=== PATIENT | male | born 1975 ===

== ENCOUNTER 2025-01-15 03:06 | Inpatient (IN) | payer MEDICARE ==
[~2025-01-15] VITALS: Ht 167.6 cm; Wt 97.2 kg
[2025-01-15] MEDS ORDERED: Ondansetron HCl 2 MG / ML 2ML Vial IV ONE (03:45)
[2025-01-15 03:55] LABS: BASOPHILS ABSOLUTE AUTO 0.07 K/mm3 (0.00-0.23); BASOPHILS PERCENT AUTO 1 % (0-2); EOSINOPHILS ABSOLUTE AUTO 0.05 K/mm3 (0.00-0.68); EOSINOPHILS PERCENT AUTO 0 % (0-6); Hematocrit 54.6 % (37.0-53.0); Hemoglobin 18.3 g/dL (13.5-17.5); IMMATURE GRAN ABSOLUTE AUTO 0.06 K/mm3 (0.00-0.10); IMMATURE GRAN PERCENT AUTO 0 % (0-1); LYMPHOCYTES PERCENT AUTO 8 % (21-46); MONOCYTES ABSOLUTE AUTO 0.66 K/mm3 (0.16-1.47); MONOCYTES PERCENT AUTO 5 % (4-13); Mean Corpuscular HGB 29.2 pg (26.0-34.0); Mean Corpuscular HGB Conc 33.5 g/dL (31.5-36.5); Mean Corpuscular Volume 87 fL (80-100); NEUTROPHILS ABSOLUTE AUTO 12.51 K/mm3 (1.96-9.15); NEUTROPHILS PERCENT AUTO 87 % (41-73); Platelet Count 218 K/mm3 (150-400); RDW Coefficient Variation 13.8 % (11.7-14.2); RDW Standard Deviation 43.7 fL (35.1-46.3); Red Blood Cell Count 6.27 M/mm3 (4.30-5.90); White Blood Cell Count 14.45 K/mm3 (4.00-11.30)
[2025-01-15 04:18] LABS: Albumin, Blood 3.6 g/dL (3.4-5.0); Albumin/Globulin Ratio 0.9 (0.8-1.8); Bilirubin, Total 0.5 mg/dL (0.1-1.0); Bun/Creatinine Ratio 20.1 (12.0-20.0); Calcium, Blood 9.3 mg/dL (8.5-10.1); Creatinine, Blood 0.65 mg/dL (0.60-1.20); Globulin, Blood 3.9 g/dL (2.2-4.0); Potassium, Blood 3.7 mmol/L (3.5-5.5); Total Protein, Blood 7.5 g/dL (6.4-8.2)
[2025-01-15] MEDS ORDERED: NS 1,000 ML IV SCH ×4 (05:20→11:45)
[2025-01-15] MEDS ORDERED: Pantoprazole Sodium 40 MG Injection IV ONE (05:50)
[2025-01-15] MEDS ORDERED: Haloperidol Lactate Inj. 5 MG/ML Injection IV ONE (05:50)
[2025-01-15 06:37] LABS: Hematocrit 51.8 % (37.0-53.0); Hemoglobin 17.2 g/dL (13.5-17.5)
[2025-01-15 07:07] LABS: Base Excess Venous 3.2 mmol/L; Bicarbonate Venous 26.2 mmol/L (24.0-30.0); PCO2 Venous 47.6 mmHg (38-42); pH Blood Venous 7.38 (7.34-7.37)
[2025-01-15] MEDS ORDERED: CefTRIAXone Sodium 1,000 MG in NS 100 ML IV ONE ×2 (10:20→12:00)
[2025-01-15] MEDS ORDERED: Doxycycline Hyclate 100 MG in Dextrose 5% 250 ML IV ONE (10:20)
[2025-01-15] MEDS ORDERED: Insulin Regular 100 Unit/ML 1ML Dose IV ONE (11:00)
[2025-01-15] MEDS ORDERED: FLU VACC TS2024-25(6MOS UP)/PF 45 MCG/0.5 ML SYRINGE IM SCH (11:50)
[2025-01-15] MEDS ORDERED: Pantoprazole Sodium 40 MG Injection IV SCH (12:00)
[2025-01-15 12:28] LABS: U Amphetamine Screen Not Detected; U Barbituate Screen Not Detected; U Benzodiazapine Screen Not Detected; U Buprenorphine Screen Not Detected; U Cannabinoids Screen DETECTED; U Cocaine Screen Not Detected; U Methadone Screen Not Detected; U Methamphetamine Screen Not Detected; U Opiates Screen Not Detected; U Oxycodone Screen Not Detected; U Phencyclidine Screen Not Detected
[2025-01-15] MEDS ORDERED: Insulin Human Lispro 100 Units/ML 3ML Syringe SC SCH (16:30)
[2025-01-15 16:51] LABS: Glucose, Blood 332 mg/dL (70-99)
--- NOTE | 2025-01-15 18:55 | NUR ---
PT ARRIVED FROM ER. ON 2L NC.
[2025-01-15 19:00] VITALS: BP 141/94
[2025-01-15] MEDS ORDERED: Nicotine 21 MG PATCH TOP SCH (21:00)
[2025-01-15] MEDS ORDERED: Insulin Glargine-Yfgn 100 Unit/mL 3 ML SYR SC SCH (21:00)
[2025-01-16] MEDS ORDERED: Doxycycline Hyclate 100 MG in Dextrose 5% 250 ML IV SCH
[2025-01-16] MEDS ORDERED: Acetaminophen 325 MG TABLET PO PRN (02:25)
[2025-01-16] MEDS ORDERED: OxyCODONE HCL 5 MG TAB PO PRN (02:25)
[2025-01-16 03:01] VITALS: BP 143/86
[2025-01-16 04:54] LABS: BASOPHILS ABSOLUTE AUTO 0.06 K/mm3 (0.00-0.23); BASOPHILS PERCENT AUTO 1 % (0-2); EOSINOPHILS ABSOLUTE AUTO 0.15 K/mm3 (0.00-0.68); EOSINOPHILS PERCENT AUTO 1 % (0-6); Hematocrit 46.1 % (37.0-53.0); Hemoglobin 15.2 g/dL (13.5-17.5); IMMATURE GRAN ABSOLUTE AUTO 0.03 K/mm3 (0.00-0.10); IMMATURE GRAN PERCENT AUTO 0 % (0-1); LYMPHOCYTES ABSOLUTE AUTO 2.12 K/mm3 (0.84-5.20); LYMPHOCYTES PERCENT AUTO 18 % (21-46); MONOCYTES ABSOLUTE AUTO 0.89 K/mm3 (0.16-1.47); MONOCYTES PERCENT AUTO 8 % (4-13); Mean Corpuscular HGB 29.4 pg (26.0-34.0); Mean Corpuscular Volume 89 fL (80-100); NEUTROPHILS ABSOLUTE AUTO 8.44 K/mm3 (1.96-9.15); NEUTROPHILS PERCENT AUTO 72 % (41-73); Platelet Count 171 K/mm3 (150-400); RDW Coefficient Variation 13.7 % (11.7-14.2); RDW Standard Deviation 44.9 fL (35.1-46.3); Red Blood Cell Count 5.17 M/mm3 (4.30-5.90); White Blood Cell Count 11.69 K/mm3 (4.00-11.30)
[2025-01-16 05:30] LABS: Albumin, Blood 2.7 g/dL (3.4-5.0); Albumin/Globulin Ratio 0.9 (0.8-1.8); Bilirubin, Total 0.6 mg/dL (0.1-1.0); Bun/Creatinine Ratio 15.6 (12.0-20.0); Calcium, Blood 7.4 mg/dL (8.5-10.1); Creatinine, Blood 0.58 mg/dL (0.60-1.20); Free Thyroxine 1.07 ng/dL (0.70-1.60); Globulin, Blood 3.1 g/dL (2.2-4.0); Magnesium, Blood 1.4 mg/dL (1.6-2.4); Potassium, Blood 3.4 mmol/L (3.5-5.5); Thyroid Stimulating Hormone 1.3 uIU/mL (0.360-4.800); Total Protein, Blood 5.8 g/dL (6.4-8.2)
--- NOTE | 2025-01-16 06:17 | NUR ---
NEW ADMIT/MAINTENANCE MECHANIC TELEPHONE SUMMARY NEW ADMIT FOR DX SEPSIS WITH DEVELOPING LLL PNA. PT IS A/OX3-4; CAN ANSWER SIMPLE ORIENTATION QUESTIONS; NOTED SOME FORGETFULNESS AND POOR HISTORIAN OF MEDICAL/RECENT PERSONAL HX. PT IS PLEASANT/COOPERATIVE. ORIENTED PT TO ROOM AND CALL LIGHT. EDUCATION ON IGNITION SOURCES. PT IS A CURRENT SMOKER; PT HAS 5 LIGHTERS ON HIS PERSON WHICH WERE LOCKED IN THE PT ROOM DRAWER. THE PT STATED HE IS FROM [place] AND HE MOVED OUT TO [place] 7 DAYS AGO. PT STATES HE FLEW HERE. 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 PT SAYS HE TAKES INSULIN AND BLOOD PRESSURE MEDS BUT COULDN'T RECALL NAMES/DOSAGES. PT USED A [facility] IN [place]. PT DOES NOT HAVE ANY MEDS WITH HIM. HE IS CURRENLTY LIVING WITH FRIENDS AND DENIES SAFETY CONCERNS. PT IS RA AT BASELINE BUT REQUIRING 2LPM TO MAINTAIN SATS. PT IS A 1PA; PT WOBBLY ON FEET AND OVERESTIMATES ABILITY. PT REPORTS FALLING THIS PAST WEEK AND HURTING HIS RIGHT SHOULDER. VSS. PT RCVD IV ABOX PER DEC. TOLERATED WELL. CALL LIGHT ACCESSIBLE. PT CALLING APPROPRIATELY. CARE WILL CONTINUE UNTIL REPORT GIVEN TO ONCOMING NURSE.
[2025-01-16 07:23] VITALS: BP 122/85
[2025-01-16] MEDS ORDERED: Potassium Chloride 20 MEQ TabCR PO ONE (09:00)
[2025-01-16] MEDS ORDERED: CefTRIAXone Sodium 2,000 MG in NS 100 ML IV SCH (09:00)
[2025-01-16] MEDS ORDERED: Enoxaparin 40 MG/0.4 ML SYR SC SCH (09:00)
[2025-01-16] MEDS ORDERED: Magnesium Sulf 2 GM/Water 50ML 50 ML IV ONE (09:25)
[2025-01-16] MEDS ORDERED: BUSP5 PO (11:06)
[2025-01-16] MEDS ORDERED: INSULANI SC (11:07)
[2025-01-16] MEDS ORDERED: GLIP10 PO (11:07)
[2025-01-16] MEDS ORDERED: LISI10 PO (11:07)
--- NOTE | 2025-01-16 16:45 | NUR ---
NO ACUTE CHANGES THIS SHIFT. PT REPORTS FEELING BETTER OVER ALL. PT IS R/A, TELE AND PULSE OX D/C TODAY. PT DENIES SOB/DENIES CHEST PAIN. INDEPENDENT IN THE ROOM. CALLS APPROPRIATELY. IV ANTIBIOTICS CONTNINUED.
[2025-01-16 16:54] VITALS: BP 153/106
[2025-01-16 19:17] VITALS: BP 153/96
[2025-01-17 02:32] VITALS: BP 152/99
--- NOTE | 2025-01-17 04:06 | NUR ---
PT A&O X4. MAKES NEEDS KNONW. NO ACUTE EVENTS THIS SHFIT. INDEPENDENT IN ROOM. NO ADVERSE SIDE EFFECTS TO IV ABX. BED IN LOWEST POSITION. CALL LIGHT IN REACH. CARES CONTINUE ORDERED.
[2025-01-17 04:23] LABS: Base Excess Venous 2.5 mmol/L; Bicarbonate Venous 27.1 mmol/L (24.0-30.0); PCO2 Venous 33.6 mmHg (38-42); pH Blood Venous 7.49 (7.34-7.37)
[2025-01-17 05:31] LABS: BASOPHILS ABSOLUTE AUTO 0.07 K/mm3 (0.00-0.23); BASOPHILS PERCENT AUTO 1 % (0-2); EOSINOPHILS ABSOLUTE AUTO 0.15 K/mm3 (0.00-0.68); EOSINOPHILS PERCENT AUTO 2 % (0-6); Hematocrit 49.3 % (37.0-53.0); Hemoglobin 16.5 g/dL (13.5-17.5); IMMATURE GRAN ABSOLUTE AUTO 0.04 K/mm3 (0.00-0.10); IMMATURE GRAN PERCENT AUTO 0 % (0-1); LYMPHOCYTES ABSOLUTE AUTO 2.34 K/mm3 (0.84-5.20); LYMPHOCYTES PERCENT AUTO 25 % (21-46); MONOCYTES ABSOLUTE AUTO 0.82 K/mm3 (0.16-1.47); MONOCYTES PERCENT AUTO 9 % (4-13); Mean Corpuscular HGB 29.2 pg (26.0-34.0); Mean Corpuscular HGB Conc 33.5 g/dL (31.5-36.5); Mean Corpuscular Volume 87 fL (80-100); Mean Platelet Volume 11.5 fL (9.1-12.4); NEUTROPHILS ABSOLUTE AUTO 5.93 K/mm3 (1.96-9.15); NEUTROPHILS PERCENT AUTO 64 % (41-73); Platelet Count 185 K/mm3 (150-400); RDW Coefficient Variation 13.3 % (11.7-14.2); RDW Standard Deviation 42.5 fL (35.1-46.3); Red Blood Cell Count 5.65 M/mm3 (4.30-5.90); White Blood Cell Count 9.35 K/mm3 (4.00-11.30)
[2025-01-17 05:50] LABS: Bun/Creatinine Ratio 11.3 (12.0-20.0); Calcium, Blood 8.4 mg/dL (8.5-10.1); Creatinine, Blood 0.62 mg/dL (0.60-1.20); Potassium, Blood 3.4 mmol/L (3.5-5.5)
[2025-01-17 07:35] VITALS: BP 161/102
[2025-01-17] MEDS ORDERED: Potassium Chloride 20 MEQ TabCR PO ONE (10:00)
[2025-01-17 16:18] VITALS: BP 152/96
--- NOTE | 2025-01-17 17:40 | NUR ---
NO ACUTE CHANGES, PT FEELING BETTER TODAY. IV ANTIBIOTICS CONTINUED, LIKELY TO DISCHARGE TOMORROW. CBG TREATED PER EMAR. INDEPENDENT IN THE ROOM, R/A
[2025-01-17 19:37] VITALS: BP 145/90
[2025-01-17] MEDS ORDERED: Insulin Glargine-Yfgn 100 Unit/mL 3 ML SYR SC SCH (21:00)
[2025-01-18 02:41] VITALS: BP 153/96
--- NOTE | 2025-01-18 03:11 | NUR ---
AGRICULTURAL LENDER SUMMARY: PT A&O X4. INDEPENDENT IN ROOM. NO ADVERSE SIDE EFFECTS TO IV ABX. ANTICIPATED D/C TODAY. CBG ELEVATED AND TREATED PER EMAR ORDERS. NO ACUTE CHANGES T/O SHIFT. CARES ONGOING ORDERED.
[2025-01-18 07:10] VITALS: BP 163/101
--- NOTE | 2025-01-18 07:27 | NUR ---
ASSUMED CARE OF PATIENT. AWAKE DURING SHIFT-CHANGE REPORT. LYING IN BED. NO ACUTE DISTRESS. ALL ACUTE NEEDS MET. BED IN LOWEST POSITION. CALL LIGHT WITHIN REACH.
[2025-01-18] MEDS ORDERED: NICO21TP TOP (10:47)
[2025-01-18] MEDS ORDERED: INSULIN LI100 UNIT/6 SC (10:50)
[2025-01-18] MEDS ORDERED: DOXY100 PO (10:53)
--- NOTE | 2025-01-18 12:56 | NUR ---
DISCHARGE SUMMARY: A&Ox4. PLEASANT AND COOPERATIVE WITH CARE. CALLS APPROPRIATELY AND IS ABLE TO ADVOCATE NEEDS EFFECTIVELY. AMBULATES INDEPENDETLY. CONTINENT OF BOWEL AND BLADDER. BM TODAY. MEDS WHOLE c FLUIDS. NO TELE. MEDICATED PRN PAIN. MEDICATIONS FAXED TO [facility]. INSTRUCTED TO FOLLOW-UP WITH PROVIDERS ORDERED. LEFT FLOOR AT WITH ALL BELONGINGS AND DISCHARGE PACKET.
== END 2025-01-18 11:24 | disposition home or self-care (01) | DRG 871 ==
LOC: ER 03:06 → MEDS 11:46 → ERHOLD 11:46 → MEDS 18:56
PROVIDERS: Emergency Medicine; ADMIT Internal Medicine
DX: A41.9 Sepsis, unspecified organism (principal); G92.8 Other toxic encephalopathy; J69.0 Pneumonitis due to inhalation of food and vomit; K22.6 Gastro-esophageal laceration-hemorrhage syndrome; J96.01 Acute respiratory failure with hypoxia; E87.1 Hypo-osmolality and hyponatremia; E11.65 Type 2 diabetes mellitus with hyperglycemia; R65.20 Severe sepsis without septic shock; R09.02 Hypoxemia; I49.1 Atrial premature depolarization; E87.6 Hypokalemia; Z88.5 Allergy status to narcotic agent; Z88.0 Allergy status to penicillin; Z88.2 Allergy status to sulfonamides; Z88.8 Allergy status to other drugs, medicaments and biological substances
CPT/HCPCS: 36415; 71045; 80048; 80053; 82010; 82803; 82947; 83605; 83735; 84439; 84443; 85014; 85018; 85025; 87040; 93005; 93010; 94760; 96361; 96365; 96375; 99285-25; A9270; J0696; J1630; J1650; J1815; J2405; J2470; J3475; J7030; J7060

== ENCOUNTER 2025-06-23 05:27 | Emergency (ER) | payer OTHER ==
[~2025-06-23] VITALS: Ht 167.6 cm; Wt 90.7 kg
[~2025-06-23 05:27] MED LIST: BUSP5 PO; DOXY100 PO; GLIP10 PO; INSULANI SC; INSULIN LI100 UNIT/6 SC; LISI10 PO; NICO21TP TOP
[2025-06-23] MEDS ORDERED: NS 1,000 ML IV SCH (06:25)
[2025-06-23] MEDS ORDERED: Ondansetron HCl 2 MG / ML 2ML Vial IV ONE (06:25)
[2025-06-23 07:09] LABS: BASOPHILS ABSOLUTE AUTO 0.10 K/mm3 (0.00-0.23); BASOPHILS PERCENT AUTO 1 % (0-2); EOSINOPHILS ABSOLUTE AUTO 0.32 K/mm3 (0.00-0.68); EOSINOPHILS PERCENT AUTO 2 % (0-6); Hematocrit 52.7 % (37.0-53.0); Hemoglobin 17.5 g/dL (13.5-17.5); IMMATURE GRAN ABSOLUTE AUTO 0.04 K/mm3 (0.00-0.10); IMMATURE GRAN PERCENT AUTO 0 % (0-1); LYMPHOCYTES ABSOLUTE AUTO 1.27 K/mm3 (0.84-5.20); LYMPHOCYTES PERCENT AUTO 10 % (21-46); MONOCYTES ABSOLUTE AUTO 0.84 K/mm3 (0.16-1.47); MONOCYTES PERCENT AUTO 6 % (4-13); Mean Corpuscular HGB Conc 33.2 g/dL (31.5-36.5); Mean Corpuscular Volume 87 fL (80-100); NEUTROPHILS ABSOLUTE AUTO 10.51 K/mm3 (1.96-9.15); NEUTROPHILS PERCENT AUTO 80 % (41-73); NRBC ABSOLUTE 0.00 K/mm3 (0.00-0.02); NRBC Auto 0.0 /100 WBC (0.0-0.2); Platelet Count 251 K/mm3 (150-400); RDW Coefficient Variation 13.4 % (11.7-14.2); RDW Standard Deviation 43.1 fL (35.1-46.3)
[2025-06-23 07:26] LABS: Alanine Aminotransfer (ALT/SGP 27.0 U/L (12-78); Albumin, Blood 3.6 g/dL (3.4-5.0); Albumin/Globulin Ratio 0.9 (0.8-1.8); Anion Gap 7.0 mmol/L (3-11); Aspartate Aminotrans (AST/SGOT 14.0 U/L (12-37); Bilirubin, Total 0.5 mg/dL (0.1-1.0); Blood Urea Nitrogen 19.0 mg/dL (8-24); CO2, Blood 29.0 mmol/L (21-32); Calcium, Blood 9.1 mg/dL (8.5-10.1); Chloride, Blood 102.0 mmol/L (98-108); Creatinine, Blood 0.7 mg/dL (0.60-1.20); Globulin, Blood 4.2 g/dL (2.2-4.0); Glucose, Blood 259.0 mg/dL (70-99); Potassium, Blood 4.3 mmol/L (3.5-5.5); Sodium, Blood 134.0 mmol/L (136-145); Total Protein, Blood 7.8 g/dL (6.4-8.2)
[2025-06-23] MEDS ORDERED: Metoclopramide HCl 5MG / ML 2ML Vial IV ONE (07:45)
[2025-06-23] MEDS ORDERED: ONDA4ODT MM (08:14)
== END 2025-06-23 08:50 | disposition home or self-care (01) ==
LOC: ER 05:27
PROVIDERS: Emergency Medicine
DX: R10.9 Unspecified abdominal pain (principal); R11.2 Nausea with vomiting, unspecified; R19.7 Diarrhea, unspecified; R07.9 Chest pain, unspecified; E11.9 Type 2 diabetes mellitus without complications; I10 Essential (primary) hypertension; Z88.2 Allergy status to sulfonamides; Z88.6 Allergy status to analgesic agent; Z88.5 Allergy status to narcotic agent; Z88.0 Allergy status to penicillin; Z79.4 Long term (current) use of insulin; Z79.899 Other long term (current) drug therapy
CPT/HCPCS: 80053; 83690; 85025; 96361; 96374; 96375; 99284-25; A9270; J2405; J2765; J7030